=== PATIENT | female | born 1980 | race Caucasian/White ===

== ENCOUNTER → 2022-08-13 09:58 | Outpatient (CLI) | payer OTHER, SELFPAY ==
--- NOTE | 2022-08-13 10:04 | US_ITS ---
FINAL REPORT CLINICAL HISTORY: THYROID NODULE-- bilat-- prasanna chan FINDINGS: Ultrasound guided thyroid biopsy. HISTORY: . Bilateral thyroid nodules. Attending radiologist: Dr. Love Physician Airplane Pilot Helper: Prasanna Hansen PA-C PROCEDURE: After informed consent was obtained and a time-out was performed, the patient was prepped and draped in usual sterile fashion over the neck. Utilizing local anesthesia and sterile technique with a 25-gauge needle, access to lesion in the right lobe of the thyroid was obtained. Three passes were made. Subsequently, access to the lesion in the left lobe of the thyroid was obtained with a 25-gauge needle. Three passes were made. The patient received no conscious sedation. The patient tolerated procedure well and left the department in good condition. IMPRESSION: Status post ultrasound guided biopsy of nodules within the left and right lobe of thethyroid without immediate complication. Films reviewed , interpreted and dictated by Dr. Love. Transcribed by Prasnana Hansen PA-C. Reviewed, Interpreted and Dictated by Dave Love III, MD Transcribed by LOLY Rojas Authenticated and [facility]
--- NOTE | 2022-08-13 10:04 | US_ITS ---
FINAL REPORT CLINICAL HISTORY: THYROID NODULE FINDINGS: Thyroid ultrasound HISTORY: . Bilateral thyroid masses. PROCEDURE: Ultrasound images of the thyroid were obtained. FINDINGS: There is a dominant hypoechoic solid nodule identified in the right lobe of the thyroid measuring up to 2.5 x 1.8 x 0.9 cm, a TR 4 nodule. There is a dominant hypoechoic solid nodule identified in the left lobe of the thyroid measuring 2.6 x 1.4 x 2.6 cm with calcifications, a TR 4 nodule. IMPRESSION: Dominant TR 4 nodules within both lobes of the thyroid. Fine needle aspirations were obtained of both nodules. Films reviewed , interpreted and dictated by Dr. Love. Transcribed by Prasanna Hansen PA-C. Reviewed, Interpreted and Dictated by Dave Love III, MD Transcribed by LOLY Rojas Authenticated and [facility]
== END ==
PROVIDERS: PCP Nurse Practitioner Family; Visit Provider Nurse Practitioner Family
DX: E04.1 Nontoxic single thyroid nodule (principal)
CPT/HCPCS: 10005; 76536